=== PATIENT | male | born 1950 | race Caucasian/White ===

== ENCOUNTER 2025-02-14 23:05 | Inpatient (IN) | payer MEDICARE, OTHER ==
[~2025-02-14] VITALS: Ht 172.7 cm; Wt 66.2 kg
[2025-02-14] MEDS ORDERED: PROPOFOL 100 ML ONE (23:24)
[2025-02-14] MEDS ORDERED: CEFTRIAXONE 1GM BAG (ER ONLY) 50 ML IV ONE (23:26)
[2025-02-14] MEDS: IV NS 0.9% 1,000 ML BAG IV ONE (23:26)
[2025-02-14] MEDS: CEFTRIAXONE 1 G in IV D5W 50 ML IV ONE (23:27)
[2025-02-14] MEDS ORDERED: FENTANYL CITRAT IV 2,500 MCG in IV NS 0.9% 200 ML IV PRN (23:30)
[2025-02-14] MEDS ORDERED: AZITHROMYCIN 500 MG VIAL ONE (23:46)
[2025-02-14] MEDS: AZITHROMYCIN 500 MG in IV D5W 250 ML IV ONE (23:57)
[2025-02-14 23:59] LABS: PLATELET COUNT (AUTO) 506 K/uL (150-450); RED BLOOD CELL COUNT(AUTO) 3.61 MIL/uL (4.5-6.0); RED CELL DISTRIBUTION WIDTH 21.2 % (11.5-15.0); WHITE BLOOD COUNT (AUTO) 11.4 K/uL (4.3-11.0)
[2025-02-14] MEDS: PROPOFOL 100 ML IV PRN (23:59)
[2025-02-15] VITALS (73 sets, daily range): BP systolic 71–160; BP diastolic 29–148; TEMP 97.6–98.6; O2SAT 98–100
[2025-02-15 00:04] LABS: CALCIUM, SERUM 9.7 mg/dL (8.5-10.1); CREATININE 2.2 mg/dL (0.6-1.3); UREA NITROGEN, BLOOD 42 mg/dL (7-18)
[2025-02-15 00:10] LABS: ASPARTATE AMINOTRANSFERASE 117 U/L (15-37); TOTAL PROTEIN, SERUM 7.3 g/dL (6.4-8.2)
[2025-02-15 00:13] LABS: SODIUM SERUM 156 mmol/L (136-145)
[2025-02-15 00:27] LABS: APPEARANCE,URINE TURBID (CLEAR); BLOOD, URINE 1+ Ery/uL (NEGATIVE); LEUKOCYTE ESTERASE ,URINE 3+ (NEGATIVE); NITRITE, URINE NEGATIVE (NEGATIVE); UGLUCOSE NEGATIVE (NEGATIVE)
[2025-02-15 00:35] LABS: ABG BASE EXCESS -6.0 mmol/L (-2.0-3.0); ABG OXYGEN SATURATION 98.8 % (94.0-98.0); ABG PCO2 33.0 mmHg (35.0-48.0); ABG PH 7.369 (7.350-7.450); ABG PO2 162.7 mmHg (83.0-108.0); ABG TOTAL HEMOGLOBIN 9.3 G/dL (13.5-17.5); PEEP,BG 5 cm H2O; SET RATE, BG 18.0; SITE, ABG RIGHT BRACHIAL; VT, ABG 500 mL
[2025-02-15 00:39] LABS: ADD URINE CULTURE YES; SQUAMOUS EPITHELIAL CELL,UR 0-2 /HPF (None Seen)
[2025-02-15 00:51] LABS: EOSINOPHILS % (MANUAL) 1 % (0-4); LYMPHOCYTES % (MANUAL) 10 % (16-48); MONOCYTES % (MANUAL) 1 % (0-11.0); NEUTROPHILS % (MANUAL) 88 (42-76); PLATELET ESTIMATE INCREASED
[2025-02-15] MEDS ORDERED: ACETAMINOPHEN 650 MG/SUPP.RECT RC PRN (01:00)
[2025-02-15] MEDS ORDERED: DOSING PER PHARMACY-CEFEPIME IVPB XX PRN (01:00)
[2025-02-15] MEDS ORDERED: ONDANSETRON HCL/PF 4 MG/2 ML VIAL IVP PRN (01:00)
[2025-02-15] MEDS ORDERED: IV NS 0.9% 1,000 ML IV PRN ×2 (01:00→02:00)
[2025-02-15] MEDS ORDERED: DOSING PER PHARMACY-VANCOMYCIN IV XX PRN (01:00)
[2025-02-15 01:40] LABS: LACTIC ACID 5.7 mmol/L (0.4-2.0)
[2025-02-15] MEDS ORDERED: NOREPINEPHRINE 8MG/250ML RTU 250 ML IV ONE (01:50)
[2025-02-15] MEDS: NOREPINEPHRINE 8 MG in IV NS 0.9% 242 ML IV PRN ×2 (02:06→10:33)
[2025-02-15] MEDS: IV NS 0.9% 1,000 ML BAG IV ONE (02:06)
[2025-02-15] MEDS: NOREPINEPHRINE 8 MG in IV NS 0.9% 250 ML IV PRN (03:20)
[2025-02-15] MEDS: PROPOFOL 10MG/ML 50ML 50 ML IV PRN (04:09)
[2025-02-15 04:43] LABS: CALCIUM, SERUM 9.3 mg/dL (8.5-10.1)
[2025-02-15 04:44] LABS: CREATININE 1.7 mg/dL (0.6-1.3); PHOSPHORUS 3.5 mg/dL (2.5-4.9); UREA NITROGEN, BLOOD 36.0 mg/dL (7-18)
[2025-02-15 05:02] LABS: SODIUM SERUM 157.0 mmol/L (136-145)
[2025-02-15 05:04] LABS: LACTIC ACID REFLEX 1.7 mmol/L (0.4-1.9)
[2025-02-15] MEDS ORDERED: CEFEPIME 1 GM VIAL ONE (05:42)
[2025-02-15] MEDS: IV D5W 1,000 ML IV PRN (05:50)
[2025-02-15] MEDS: CEFEPIME 1 GM in IV NS 0.9% 100 ML IV ONE (06:07)
[2025-02-15] MEDS ORDERED: Z GUARD REMEDY 4 OZ OINT TP PRN (08:00)
[2025-02-15 08:34] LABS: ABG BASE EXCESS -4.8 mmol/L (-2.0-3.0); ABG OXYGEN SATURATION 98.2 % (94.0-98.0); ABG PCO2 26.7 mmHg (35.0-48.0); ABG PH 7.448 (7.350-7.450); ABG PO2 127.2 mmHg (83.0-108.0); ABG TOTAL HEMOGLOBIN 10.6 G/dL (13.5-17.5); FRACTIONATED INSPIRED OXYGEN 100.0 %; PEEP,BG 5 cm H2O; SET RATE, BG 18.0; SITE, ABG RIGHT RADIAL; VT, ABG 500 mL
[2025-02-15] MEDS: VANCOMYCIN HCL 1.25 GM in IV D5W 250 ML IV ONE (08:41)
[2025-02-15] MEDS: THERAHONEY GEL 1.5 OZ TUBE TP SCH (08:58)
[2025-02-15] MEDS ORDERED: dexaMETHasone SOD PHOSPHATE 6 MG in IV D5W 50 ML IV SCH (09:00)
[2025-02-15] MEDS: Z GUARD REMEDY 4 OZ OINT TP SCH (09:00)
[2025-02-15] MEDS: HEPARIN SODIUM, PORCINE 5000 UNITS/1 ML VIAL SQ SCH (09:00)
[2025-02-15] MEDS: PANTOPRAZOLE 40 MG VIAL IV SCH (09:00)
[2025-02-15] MEDS: IV D5/0.45 NACL 1,000 ML IV SCH (09:25)
[2025-02-15] MEDS ORDERED: CHOL200059 PO (09:38)
[2025-02-15] MEDS ORDERED: TAMS-12 PO (09:38)
[2025-02-15] MEDS ORDERED: TRAM50TA2 PO (09:38)
[2025-02-15] MEDS ORDERED: APIX2.5T PO (09:38)
[2025-02-15] MEDS ORDERED: LACT-209 GT (09:38)
[2025-02-15] MEDS ORDERED: ACET325T53 PO (09:38)
[2025-02-15] MEDS ORDERED: SENN-18 PO (09:38)
[2025-02-15] MEDS ORDERED: BUSP10TA3 PO (09:38)
[2025-02-15] MEDS: dexaMETHasone SOD PHOSPHATE 10 MG/ML VIAL MC SCH (09:49)
[2025-02-15] MEDS: POTASSIUM CL. PREMIX PERIPHER. 50 ML IV SCH (09:50)
[2025-02-15] MEDS: PROPOFOL 100 ML IV PRN (10:41)
[2025-02-15] MEDS ORDERED: REMDESIVIR (CHARGED) 200 MG, *LOADING DOSE 1 EA in IV NS 0.9% 210 ML IV ONE (13:00)
[2025-02-15] MEDS: VITAL AF 1.2 1,000 ML BOTTLE GT PRN (13:06)
[2025-02-15 13:19] LABS: ASPARTATE AMINOTRANSFERASE 46.0 U/L (15-37); TOTAL PROTEIN, SERUM 6.5 g/dL (6.4-8.2)
[2025-02-15 13:28] LABS: LACTIC ACID 4.9 mmol/L (0.4-2.0)
[2025-02-15] MEDS: MEROPENEM 1 G in IV NS 0.9% 100 ML IV SCH (13:50)
[2025-02-15] MEDS ORDERED: dexaMETHasone SOD PHOSPHATE 10 MG/ML VIAL IV SCH (14:00)
[2025-02-15] MEDS: REMDESIVIR (CHARGED) 200 MG in IV NS 0.9% 250 ML IV ONE (14:14)
[2025-02-15] MEDS: DAKINS QUARTER STRENGTH (0.125%) 480 ML BOTTLE TOP SCH (15:30)
[2025-02-15] MEDS ORDERED: CEFEPIME 2 GM in IV D5W 100 ML IV SCH (18:00)
[2025-02-15] MEDS: VANCOMYCIN 750 MG in IV D5W 250 ML IV ONE (21:00)
[2025-02-16] VITALS (96 sets, daily range): BP systolic 73–170; BP diastolic 35–98; TEMP 97.8–98.4; O2SAT 100
[2025-02-16 05:29] LABS: PLATELET COUNT (AUTO) 352 K/uL (150-450); RED BLOOD CELL COUNT(AUTO) 3.12 MIL/uL (4.5-6.0); RED CELL DISTRIBUTION WIDTH 20.5 % (11.5-15.0); WHITE BLOOD COUNT (AUTO) 14.2 K/uL (4.3-11.0)
[2025-02-16 05:47] LABS: INR 1.36 (0.91-1.10)
[2025-02-16 05:49] LABS: ASPARTATE AMINOTRANSFERASE 18.0 U/L (15-37); CALCIUM, SERUM 8.9 mg/dL (8.5-10.1); CREATININE 1.6 mg/dL (0.6-1.3); PHOSPHORUS 2.9 mg/dL (2.5-4.9); SODIUM SERUM 155.0 mmol/L (136-145); TOTAL PROTEIN, SERUM 6.0 g/dL (6.4-8.2); UREA NITROGEN, BLOOD 27.0 mg/dL (7-18)
[2025-02-16 05:50] LABS: CREATINE KINASE, TOTAL 68.0 U/L (39-308)
[2025-02-16] MEDS: VANCOMYCIN 1 GM in IV D5W 250ml IV SCH (08:00)
[2025-02-16] MEDS: dexaMETHasone SOD PHOSPHATE 10 MG/ML VIAL IV SCH (08:22)
[2025-02-16] MEDS: POTASSIUM CL. PREMIX PERIPHER. 50 ML IV SCH (10:15)
[2025-02-16] MEDS: REMDESIVIR (CHARGED) 100 MG in IV NS 0.9% 80 ML IV SCH (14:22)
[2025-02-17] VITALS (98 sets, daily range): BP systolic 89–158; BP diastolic 39–145; TEMP 97.5–98.3; O2SAT 90–100
[2025-02-17 04:57] LABS: PLATELET COUNT (AUTO) 274 K/uL (150-450); RED BLOOD CELL COUNT(AUTO) 2.71 MIL/uL (4.5-6.0); RED CELL DISTRIBUTION WIDTH 20.3 % (11.5-15.0); WHITE BLOOD COUNT (AUTO) 12.7 K/uL (4.3-11.0)
[2025-02-17 05:15] LABS: CALCIUM, SERUM 8.5 mg/dL (8.5-10.1); CREATININE 1.4 mg/dL (0.6-1.3); SODIUM SERUM 155.0 mmol/L (136-145); UREA NITROGEN, BLOOD 31.0 mg/dL (7-18)
[2025-02-17 05:18] LABS: INR 1.26 (0.91-1.10)
[2025-02-17 06:53] LABS: ASPARTATE AMINOTRANSFERASE 20.0 U/L (15-37); TOTAL PROTEIN, SERUM 5.5 g/dL (6.4-8.2)
[2025-02-17] MEDS ORDERED: POTASSIUM CHLORIDE 20 MEQ TAB.PRT.SR PO ONE (10:00)
[2025-02-17] MEDS: IV D5W 1,000 ML IV PRN (10:20)
[2025-02-17] MEDS: POTASSIUM CL. PREMIX PERIPHER. 50 ML IV SCH (10:59)
[2025-02-18] VITALS (45 sets, daily range): BP systolic 73–165; BP diastolic 41–113; TEMP 97.8–98.5; O2SAT 90–100
[2025-02-18 05:07] LABS: INR 1.19 (0.91-1.10)
[2025-02-18 05:12] LABS: ASPARTATE AMINOTRANSFERASE 13.0 U/L (15-37); TOTAL PROTEIN, SERUM 5.5 g/dL (6.4-8.2)
[2025-02-18 05:13] LABS: CALCIUM, SERUM 8.6 mg/dL (8.5-10.1); CREATININE 1.1 mg/dL (0.6-1.3); SODIUM SERUM 149.0 mmol/L (136-145); UREA NITROGEN, BLOOD 29.0 mg/dL (7-18)
[2025-02-18 05:30] LABS: PLATELET COUNT (AUTO) 265 K/uL (150-450); RED BLOOD CELL COUNT(AUTO) 2.65 MIL/uL (4.5-6.0); RED CELL DISTRIBUTION WIDTH 20.0 % (11.5-15.0); WHITE BLOOD COUNT (AUTO) 13.6 K/uL (4.3-11.0)
[2025-02-18 05:55] LABS: NEUTROPHILS % (MANUAL) 82 (42-76)
[2025-02-18 05:56] LABS: LYMPHOCYTES % (MANUAL) 6 % (16-48); MONOCYTES % (MANUAL) 12 % (0-11.0); PLATELET ESTIMATE ADEQUATE
[2025-02-18] MEDS ORDERED: DIATR MEGLU/DIATRIZOATE SODIUM 30 ML BOTTLE (GASTROGRAPHIN) ONE (08:09)
[2025-02-18] MEDS: MUPIROCIN OINT 2% 22 GM TUBE NS SCH (20:50)
[2025-02-19] VITALS (39 sets, daily range): BP systolic 68–176; BP diastolic 39–148; TEMP 98.2–98.5; O2SAT 95–100
[2025-02-19 01:11] LABS: PTH, INTACT 24 pg/mL (15-65)
[2025-02-19 05:15] LABS: CALCIUM, SERUM 8.0 mg/dL (8.5-10.1); CREATININE 1.0 mg/dL (0.6-1.3); SODIUM SERUM 145 mmol/L (136-145); UREA NITROGEN, BLOOD 22 mg/dL (7-18)
[2025-02-19 05:18] LABS: PLATELET COUNT (AUTO) 212 K/uL (150-450); RED BLOOD CELL COUNT(AUTO) 2.66 MIL/uL (4.5-6.0); RED CELL DISTRIBUTION WIDTH 20.3 % (11.5-15.0); WHITE BLOOD COUNT (AUTO) 11.1 K/uL (4.3-11.0)
[2025-02-19 05:19] LABS: INR 1.2 (0.91-1.10)
[2025-02-19 05:23] LABS: ASPARTATE AMINOTRANSFERASE 18.0 U/L (15-37); TOTAL PROTEIN, SERUM 4.8 g/dL (6.4-8.2)
[2025-02-19] MEDS: POTASSIUM CL. PREMIX PERIPHER. 50 ML IV SCH (08:26)
[2025-02-20] VITALS (24 sets, daily range): BP systolic 87–141; BP diastolic 41–100; TEMP 98.2–98.6; O2SAT 99–100
[2025-02-20 07:54] LABS: PLATELET COUNT (AUTO) 237 K/uL (150-450); RED BLOOD CELL COUNT(AUTO) 2.66 MIL/uL (4.5-6.0); RED CELL DISTRIBUTION WIDTH 20.2 % (11.5-15.0); WHITE BLOOD COUNT (AUTO) 10.3 K/uL (4.3-11.0)
[2025-02-20] MEDS ORDERED: TPN/PPN PER PHARMACY IV PRN (08:30)
[2025-02-20 08:40] LABS: CALCIUM, SERUM 7.8 mg/dL (8.5-10.1); CREATININE 0.9 mg/dL (0.6-1.3); SODIUM SERUM 142.0 mmol/L (136-145); UREA NITROGEN, BLOOD 19.0 mg/dL (7-18)
[2025-02-20 09:15] LABS: PHOSPHORUS 2.6 mg/dL (2.5-4.9)
[2025-02-20] MEDS ORDERED: DEXTROSE 50%-WATER 50 ML DISP.SYRIN IV PRN (10:00)
[2025-02-20] MEDS ORDERED: INSULIN REGULAR, HUMAN 100 UNIT/ML 3 ML VIAL SQ PRN (10:00)
[2025-02-20] MEDS: POTASSIUM CL. PREMIX PERIPHER. 50 ML IV SCH (10:00)
[2025-02-20] MEDS: METOCLOPRAMIDE HCL 10 MG/2 ML VIAL IV SCH (10:32)
[2025-02-20] MEDS ORDERED: BLOOD SUGAR DIAGNOSTIC 1 EACH STRIP IN SCH (12:00)
[2025-02-20] MEDS ORDERED: TPN BAG #1 IV SCH (12:00)
[2025-02-21] VITALS (24 sets, daily range): BP systolic 81–147; BP diastolic 46–103; TEMP 98–98.4; O2SAT 98–100
[2025-02-21 04:50] LABS: CALCIUM, SERUM 8.4 mg/dL (8.5-10.1); CREATININE 0.8 mg/dL (0.6-1.3); PLATELET COUNT (AUTO) 284 K/uL (150-450); RED BLOOD CELL COUNT(AUTO) 2.81 MIL/uL (4.5-6.0); RED CELL DISTRIBUTION WIDTH 20.1 % (11.5-15.0); SODIUM SERUM 143.0 mmol/L (136-145); UREA NITROGEN, BLOOD 18.0 mg/dL (7-18); WHITE BLOOD COUNT (AUTO) 10.3 K/uL (4.3-11.0)
[2025-02-21 08:42] LABS: PHOSPHORUS 2.5 mg/dL (2.5-4.9)
[2025-02-21 11:45] LABS: ABG BASE EXCESS -6.3 mmol/L (-2.0-3.0); ABG OXYGEN SATURATION 99.0 % (94.0-98.0); ABG PCO2 22.7 mmHg (35.0-48.0); ABG PH 7.475 (7.350-7.450); ABG PO2 145.0 mmHg (83.0-108.0); ABG TOTAL HEMOGLOBIN 7.7 G/dL (13.5-17.5); FRACTIONATED INSPIRED OXYGEN 40.0 %; SET RATE, BG 4.0; SITE, ABG RIGHT FEMORAL; VT, ABG 475 mL
[2025-02-21] MEDS: VANCOMYCIN 1 GM in IV D5W 250ml IV SCH (20:17)
[2025-02-22] VITALS (43 sets, daily range): BP systolic 94–171; BP diastolic 41–126; TEMP 98.8–99; O2SAT 95–100
[2025-02-22 05:19] LABS: CALCIUM, SERUM 7.8 mg/dL (8.5-10.1); CREATININE 0.6 mg/dL (0.6-1.3); SODIUM SERUM 139.0 mmol/L (136-145); UREA NITROGEN, BLOOD 15.0 mg/dL (7-18)
[2025-02-22 05:21] LABS: PLATELET COUNT (AUTO) 306 K/uL (150-450); RED BLOOD CELL COUNT(AUTO) 2.66 MIL/uL (4.5-6.0); RED CELL DISTRIBUTION WIDTH 20.3 % (11.5-15.0); WHITE BLOOD COUNT (AUTO) 8.7 K/uL (4.3-11.0)
[2025-02-22 06:31] LABS: EOSINOPHILS % (MANUAL) 6 % (0-4); LYMPHOCYTES % (MANUAL) 13 % (16-48); MONOCYTES % (MANUAL) 15 % (0-11.0); NEUTROPHILS % (MANUAL) 66 (42-76); PLATELET ESTIMATE ADEQUATE
[2025-02-22] MEDS: POTASSIUM CHLORIDE 20 MEQ POWDER PACKET GT ONE ×2 (10:09→10:40)
[2025-02-22] MEDS: MEROPENEM 1 G in IV NS 0.9% 100 ML IV SCH (14:13)
[2025-02-22 14:35] LABS: ABG BASE EXCESS -4.7 mmol/L (-2.0-3.0); ABG OXYGEN SATURATION 98.8 % (94.0-98.0); ABG PCO2 23.6 mmHg (35.0-48.0); ABG PH 7.495 (7.350-7.450); ABG PO2 139.5 mmHg (83.0-108.0); ABG TOTAL HEMOGLOBIN 7.7 G/dL (13.5-17.5); FRACTIONATED INSPIRED OXYGEN 40.0 %; PEEP,BG 5 cm H2O; SITE, ABG RIGHT RADIAL
[2025-02-22] MEDS: ARGININE/GLUTAMINE/CALCIUM BMB 1 EACH POWD.PACK GT SCH (18:10)
[2025-02-23] VITALS (30 sets, daily range): BP systolic 90–175; BP diastolic 44–101; TEMP 98.4–99; O2SAT 98–100
[2025-02-23 04:35] LABS: CALCIUM, SERUM 7.9 mg/dL (8.5-10.1); CREATININE 0.8 mg/dL (0.6-1.3); SODIUM SERUM 141.0 mmol/L (136-145); UREA NITROGEN, BLOOD 16.0 mg/dL (7-18)
[2025-02-24] VITALS (26 sets, daily range): BP systolic 98–145; BP diastolic 48–74; TEMP 98.4–99.2; O2SAT 100
[2025-02-24 04:43] LABS: CALCIUM, SERUM 8.0 mg/dL (8.5-10.1); CREATININE 0.7 mg/dL (0.6-1.3); SODIUM SERUM 141.0 mmol/L (136-145); UREA NITROGEN, BLOOD 15.0 mg/dL (7-18)
[2025-02-24] MEDS: PANTOPRAZOLE 40 MG/PACK PACK GT SCH (08:26)
[2025-02-24] MEDS: VANCOMYCIN HCL 125 MG/2.5 ML ORAL.SUSP GT SCH (18:34)
[2025-02-25] VITALS (26 sets, daily range): BP systolic 93–157; BP diastolic 39–87; TEMP 98–99.7; O2SAT 100
[2025-02-25 05:08] LABS: CALCIUM, SERUM 8.2 mg/dL (8.5-10.1); CREATININE 0.7 mg/dL (0.6-1.3); SODIUM SERUM 137 mmol/L (136-145); UREA NITROGEN, BLOOD 11 mg/dL (7-18)
[2025-02-25] MEDS: POTASSIUM CHLORIDE 20 MEQ POWDER PACKET PO SCH (11:32)
[2025-02-26] VITALS (26 sets, daily range): BP systolic 93–161; BP diastolic 38–78; TEMP 99.2–99.8; O2SAT 100
[2025-02-26] MEDS: VANCOMYCIN 1 GM /D5W 250 ML PB IV ONE (02:13)
[2025-02-26 04:36] LABS: CALCIUM, SERUM 8.1 mg/dL (8.5-10.1); CREATININE 0.7 mg/dL (0.6-1.3); SODIUM SERUM 138.0 mmol/L (136-145); UREA NITROGEN, BLOOD 10.0 mg/dL (7-18)
[2025-02-26 09:33] LABS: ABG BASE EXCESS 2.0 mmol/L (-2.0-3.0); ABG OXYGEN SATURATION 99.0 % (94.0-98.0); ABG PCO2 22.9 mmHg (35.0-48.0); ABG PH 7.618 (7.350-7.450); ABG PO2 146.5 mmHg (83.0-108.0); ABG TOTAL HEMOGLOBIN 8.0 G/dL (13.5-17.5); FRACTIONATED INSPIRED OXYGEN 40.0 %; SITE, ABG LEFT RADIAL
[2025-02-26] MEDS: POTASSIUM CHLORIDE 20 MEQ POWDER PACKET GT ONE (09:46)
[2025-02-27] VITALS (26 sets, daily range): BP systolic 88–136; BP diastolic 39–66; TEMP 99–99.7; O2SAT 100
[2025-02-27 04:50] LABS: PLATELET COUNT (AUTO) 274 K/uL (150-450); RED BLOOD CELL COUNT(AUTO) 2.57 MIL/uL (4.5-6.0); RED CELL DISTRIBUTION WIDTH 20.4 % (11.5-15.0); WHITE BLOOD COUNT (AUTO) 10.2 K/uL (4.3-11.0)
[2025-02-27 05:10] LABS: ASPARTATE AMINOTRANSFERASE 17.0 U/L (15-37); CALCIUM, SERUM 8.2 mg/dL (8.5-10.1); CREATININE 0.6 mg/dL (0.6-1.3); PHOSPHORUS 2.7 mg/dL (2.5-4.9); SODIUM SERUM 135.0 mmol/L (136-145); TOTAL PROTEIN, SERUM 5.6 g/dL (6.4-8.2); UREA NITROGEN, BLOOD 13.0 mg/dL (7-18)
[2025-02-27] MEDS: POTASSIUM CHLORIDE 20 MEQ POWDER PACKET GT ONE (09:08)
[2025-02-27] MEDS: MAGNESIUM OXIDE 400 MG TABLET GT ONE (09:32)
[2025-02-27] MEDS: VITAL AF 1.2 1,000 ML BOTTLE GT PRN (16:47)
[2025-02-27] MEDS: ARGININE/GLUTAMINE/CALCIUM BMB 1 EACH POWD.PACK GT SCH (16:58)
[2025-02-27] MEDS: METOCLOPRAMIDE HCL 10 MG/2 ML VIAL IV SCH (17:12)
[2025-02-27] MEDS: VANCOMYCIN HCL 125 MG/2.5 ML ORAL.SUSP GT SCH (17:12)
[2025-02-28] VITALS (26 sets, daily range): BP systolic 92–184; BP diastolic 42–97; TEMP 98–99.4; O2SAT 100
[2025-02-28 03:44] LABS: CALCIUM, SERUM 8.1 mg/dL (8.5-10.1); CREATININE 0.7 mg/dL (0.6-1.3); SODIUM SERUM 137.0 mmol/L (136-145); UREA NITROGEN, BLOOD 17.0 mg/dL (7-18)
[2025-02-28] MEDS: PANTOPRAZOLE 40 MG/PACK PACK GT SCH (08:23)
[2025-02-28 13:27] LABS: INR 1.26 (0.91-1.10)
[2025-02-28 14:26] LABS: PLATELET COUNT (AUTO) 257 K/uL (150-450); RED BLOOD CELL COUNT(AUTO) 2.52 MIL/uL (4.5-6.0); RED CELL DISTRIBUTION WIDTH 20.7 % (11.5-15.0); WHITE BLOOD COUNT (AUTO) 8.2 K/uL (4.3-11.0)
[2025-02-28 15:43] LABS: EOSINOPHILS % (MANUAL) 8 % (0-4); LYMPHOCYTES % (MANUAL) 13 % (16-48); MONOCYTES % (MANUAL) 6 % (0-11.0); NEUTROPHILS % (MANUAL) 73 (42-76)
[2025-02-28 15:44] LABS: PLATELET ESTIMATE ADEQUATE
[2025-02-28] MEDS ORDERED: FENTANYL PF 100MCG/2ML AMPUL IV PRN (16:30)
[2025-02-28] MEDS ORDERED: VECURONIUM 10 MG VIAL IV PRN (16:30)
[2025-02-28] MEDS ORDERED: MIDAZOLAM HCL 2 MG/2ML VIAL IV PRN (16:30)
[2025-03-01] VITALS (43 sets, daily range): BP systolic 84–148; BP diastolic 37–78; TEMP 97.5–100; O2SAT 98–100
[2025-03-01 04:54] LABS: INR 1.26 (0.91-1.10); PLATELET COUNT (AUTO) 237 K/uL (150-450); RED BLOOD CELL COUNT(AUTO) 2.46 MIL/uL (4.5-6.0); RED CELL DISTRIBUTION WIDTH 20.5 % (11.5-15.0); WHITE BLOOD COUNT (AUTO) 8.2 K/uL (4.3-11.0)
[2025-03-01 04:56] LABS: CALCIUM, SERUM 8.2 mg/dL (8.5-10.1); CREATININE 0.8 mg/dL (0.6-1.3); SODIUM SERUM 140.0 mmol/L (136-145); UREA NITROGEN, BLOOD 13.0 mg/dL (7-18)
[2025-03-01 05:47] LABS: EOSINOPHILS % (MANUAL) 9 % (0-4); NEUTROPHILS % (MANUAL) 70 (42-76)
[2025-03-01 05:48] LABS: LYMPHOCYTES % (MANUAL) 16 % (16-48); MONOCYTES % (MANUAL) 5 % (0-11.0); PLATELET ESTIMATE ADEQUATE
[2025-03-01] MEDS ORDERED: MIDAZOLAM HCL 2 MG/2ML VIAL IV PRN (10:30)
[2025-03-01] MEDS: FENTANYL PF 100MCG/2ML AMPUL IV ONE (12:48)
[2025-03-01] MEDS: VECURONIUM 10 MG VIAL IV ONE (12:48)
[2025-03-01] MEDS: MIDAZOLAM HCL 2 MG/2ML VIAL IV ONE (12:49)
[2025-03-01] MEDS: ACETAMINOPHEN 650 MG/20.3 ML UDC GT PRN (23:21)
[2025-03-02] VITALS (24 sets, daily range): BP systolic 88–140; BP diastolic 40–67; TEMP 98–99.9; O2SAT 100
[2025-03-02 04:32] LABS: PLATELET COUNT (AUTO) 234 K/uL (150-450); RED BLOOD CELL COUNT(AUTO) 2.95 MIL/uL (4.5-6.0); RED CELL DISTRIBUTION WIDTH 19.2 % (11.5-15.0); WHITE BLOOD COUNT (AUTO) 8.6 K/uL (4.3-11.0)
[2025-03-02 04:44] LABS: CALCIUM, SERUM 8.5 mg/dL (8.5-10.1); CREATININE 0.8 mg/dL (0.6-1.3); SODIUM SERUM 139.0 mmol/L (136-145); UREA NITROGEN, BLOOD 13.0 mg/dL (7-18)
[2025-03-02 09:07] LABS: *SPE A/G RATIO 0.5 (0.7-1.7); *SPE ALBUMIN 1.7 g/dL (2.9-4.4); *SPE ALPHA-1-GLOBULIN 0.5 g/dL (0.0-0.4); *SPE ALPHA-2-GLOBULIN 0.9 g/dL (0.4-1.0); *SPE BETA GLOBULIN 1.1 g/dL (0.7-1.3); *SPE GLOBULIN, TOTAL 3.4 g/dL (2.2-3.9); *SPE M-SPIKE Not Observed g/dL (Not Observed); *SPE PROTEIN TOTAL 5.1 g/dL (6.0-8.5); *SPEGAMMA GLOBULIN 1.0 g/dL (0.4-1.8)
[2025-03-03] VITALS (24 sets, daily range): BP systolic 100–152; BP diastolic 42–86; TEMP 99–99.8; O2SAT 97–100
[2025-03-03 04:25] LABS: PLATELET COUNT (AUTO) 238 K/uL (150-450); RED BLOOD CELL COUNT(AUTO) 2.76 MIL/uL (4.5-6.0); RED CELL DISTRIBUTION WIDTH 19.7 % (11.5-15.0); WHITE BLOOD COUNT (AUTO) 8.7 K/uL (4.3-11.0)
[2025-03-03 04:30] LABS: CALCIUM, SERUM 8.4 mg/dL (8.5-10.1); CREATININE 0.8 mg/dL (0.6-1.3); SODIUM SERUM 136.0 mmol/L (136-145); UREA NITROGEN, BLOOD 12.0 mg/dL (7-18)
[2025-03-04] VITALS (40 sets, daily range): BP systolic 98–144; BP diastolic 43–76; TEMP 98.4–101; O2SAT 97–100
[2025-03-04 04:06] LABS: PLATELET COUNT (AUTO) 203 K/uL (150-450); RED BLOOD CELL COUNT(AUTO) 2.60 MIL/uL (4.5-6.0); RED CELL DISTRIBUTION WIDTH 19.9 % (11.5-15.0); WHITE BLOOD COUNT (AUTO) 8.7 K/uL (4.3-11.0)
[2025-03-04 04:25] LABS: CALCIUM, SERUM 8.1 mg/dL (8.5-10.1); CREATININE 0.7 mg/dL (0.6-1.3); PHOSPHORUS 2.8 mg/dL (2.5-4.9); SODIUM SERUM 136.0 mmol/L (136-145); UREA NITROGEN, BLOOD 12.0 mg/dL (7-18)
[2025-03-04] MEDS: ARGININE/GLUTAMINE/CALCIUM BMB 1 EACH POWD.PACK GT SCH (08:56)
[2025-03-04] MEDS: POTASSIUM CHLORIDE 20 MEQ POWDER PACKET GT ONE (08:56)
[2025-03-04 11:08] LABS: ABG BASE EXCESS 1.7 mmol/L (-2.0-3.0); ABG OXYGEN SATURATION 99.4 % (94.0-98.0); ABG PCO2 29.3 mmHg (35.0-48.0); ABG PH 7.533 (7.350-7.450); ABG PO2 171.5 mmHg (83.0-108.0); ABG TOTAL HEMOGLOBIN 8.4 G/dL (13.5-17.5); FRACTIONATED INSPIRED OXYGEN 40.0 %; SITE, ABG RIGHT RADIAL
[2025-03-05] VITALS (22 sets, daily range): BP systolic 97–159; BP diastolic 47–90; TEMP 97.7–101.8; O2SAT 91–100
[2025-03-05 10:19] LABS: PLATELET COUNT (AUTO) 206 K/uL (150-450); RED BLOOD CELL COUNT(AUTO) 2.96 MIL/uL (4.5-6.0); RED CELL DISTRIBUTION WIDTH 19.9 % (11.5-15.0); WHITE BLOOD COUNT (AUTO) 7.8 K/uL (4.3-11.0)
[2025-03-05 10:31] LABS: CALCIUM, SERUM 8.5 mg/dL (8.5-10.1); CREATININE 0.8 mg/dL (0.6-1.3); PHOSPHORUS 3.1 mg/dL (2.5-4.9); SODIUM SERUM 138.0 mmol/L (136-145); UREA NITROGEN, BLOOD 17.0 mg/dL (7-18)
[2025-03-05] MEDS ORDERED: DOSING PER PHARMACY-CEFEPIME IVPB XX PRN (13:00)
[2025-03-05] MEDS ORDERED: DOSING PER PHARMACY-VANCOMYCIN IV XX PRN (13:00)
[2025-03-05] MEDS: CEFEPIME 2 GM in IV D5W 100 ML IV SCH (13:59)
[2025-03-05] MEDS: VANCOMYCIN HCL 1.25 GM in IV D5W 250 ML IV ONE (15:15)
[2025-03-06] VITALS (12 sets, daily range): BP systolic 100–154; BP diastolic 54–75; TEMP 98.1–100; O2SAT 96–100
[2025-03-06 08:10] LABS: CALCIUM, SERUM 8.8 mg/dL (8.5-10.1); CREATININE 0.9 mg/dL (0.6-1.3); PHOSPHORUS 2.4 mg/dL (2.5-4.9); SODIUM SERUM 140.0 mmol/L (136-145); UREA NITROGEN, BLOOD 23.0 mg/dL (7-18)
[2025-03-06 08:12] LABS: PLATELET COUNT (AUTO) 171 K/uL (150-450); RED BLOOD CELL COUNT(AUTO) 3.04 MIL/uL (4.5-6.0); RED CELL DISTRIBUTION WIDTH 21.0 % (11.5-15.0); WHITE BLOOD COUNT (AUTO) 3.6 K/uL (4.3-11.0)
[2025-03-06] MEDS: VANCOMYCIN 1 GM in IV D5W 250ml IV SCH (15:04)
[2025-03-06] MEDS: Sodium Phosphate 15 MMOL in IV NS 0.9% 245 ML IV ONE (16:17)
[2025-03-07] VITALS (13 sets, daily range): BP systolic 98–118; BP diastolic 50–80; TEMP 98.1–98.9; O2SAT 97–100
[2025-03-07 07:19] LABS: PLATELET COUNT (AUTO) 147 K/uL (150-450); RED BLOOD CELL COUNT(AUTO) 2.70 MIL/uL (4.5-6.0); RED CELL DISTRIBUTION WIDTH 20.1 % (11.5-15.0); WHITE BLOOD COUNT (AUTO) 5.0 K/uL (4.3-11.0)
[2025-03-07 07:34] LABS: CALCIUM, SERUM 8.6 mg/dL (8.5-10.1); CREATININE 0.9 mg/dL (0.6-1.3); PHOSPHORUS 3.1 mg/dL (2.5-4.9); SODIUM SERUM 141.0 mmol/L (136-145); UREA NITROGEN, BLOOD 24.0 mg/dL (7-18)
[2025-03-08] VITALS (10 sets, daily range): BP systolic 121–150; BP diastolic 59–70; TEMP 97.4–98.6; O2SAT 96–100
[2025-03-08 06:54] LABS: PLATELET COUNT (AUTO) 157 K/uL (150-450); RED BLOOD CELL COUNT(AUTO) 2.75 MIL/uL (4.5-6.0); RED CELL DISTRIBUTION WIDTH 19.6 % (11.5-15.0); WHITE BLOOD COUNT (AUTO) 6.4 K/uL (4.3-11.0)
[2025-03-08 07:07] LABS: CALCIUM, SERUM 9.0 mg/dL (8.5-10.1); CREATININE 0.7 mg/dL (0.6-1.3); PHOSPHORUS 1.9 mg/dL (2.5-4.9); SODIUM SERUM 138.0 mmol/L (136-145); UREA NITROGEN, BLOOD 26.0 mg/dL (7-18)
[2025-03-08 11:07] LABS: EOSINOPHILS % (MANUAL) 8 % (0-4); LYMPHOCYTES % (MANUAL) 19 % (16-48); MONOCYTES % (MANUAL) 2 % (0-11.0); NEUTROPHILS % (MANUAL) 71 (42-76); PLATELET ESTIMATE ADEQUATE
[2025-03-08] MEDS: FREE WATER VIA TUBE FEEDING GT SCH (13:00)
[2025-03-08] MEDS ORDERED: FREE WATER VIA TUBE FEEDING GT SCH (13:00)
[2025-03-08] MEDS: NEUTRA PHOS 1 POWD.PACKET GT ONE (15:17)
== END 2025-03-08 20:36 | DRG 4 ==
LOC: ER 23:08 → ICU 02-15 02:27 → TELE-TD 03-05 02:49 → TELE1 03-06 09:34
PROVIDERS: ADMIT Registered Nurse Psychiatric/Mental Health
PROC: 5A1955Z Respiratory Ventilation, Greater than 96 Consecutive Hours (ICD-10-PCS; principal; 2025-02-15)
PROC: XW033E5 Introduction of Remdesivir Anti-infective into Peripheral Vein, Percutaneous Approach, New Technology Group 5 (ICD-10-PCS; 2025-02-15)
PROC: 0BH17EZ Insertion of Endotracheal Airway into Trachea, Via Natural or Artificial Opening (ICD-10-PCS; 2025-02-15)
PROC: 06HM33Z Insertion of Infusion Device into Right Femoral Vein, Percutaneous Approach (ICD-10-PCS; 2025-02-15)
PROC: 30233N1 Transfusion of Nonautologous Red Blood Cells into Peripheral Vein, Percutaneous Approach (ICD-10-PCS; 2025-02-23)
PROC: 0B113F4 Bypass Trachea to Cutaneous with Tracheostomy Device, Percutaneous Approach (ICD-10-PCS; 2025-03-01)
PROC: 0BJ08ZZ Inspection of Tracheobronchial Tree, Via Natural or Artificial Opening Endoscopic (ICD-10-PCS; 2025-03-01)
DX: A41.89 Other specified sepsis (principal); L89.154 Pressure ulcer of sacral region, stage 4; N17.0 Acute kidney failure with tubular necrosis; U07.1 COVID-19; J15.69 Pneumonia due to other Gram-negative bacteria; J96.01 Acute respiratory failure with hypoxia; G92.8 Other toxic encephalopathy; R65.21 Severe sepsis with septic shock; J12.82 Pneumonia due to coronavirus disease 2019; G82.50 Quadriplegia, unspecified; A04.72 Enterocolitis due to Clostridium difficile, not specified as recurrent; D68.59 Other primary thrombophilia; E87.0 Hyperosmolality and hypernatremia; Z99.11 Dependence on respirator [ventilator] status; E87.20 Acidosis, unspecified; I70.262 Atherosclerosis of native arteries of extremities with gangrene, left leg; L97.828 Non-pressure chronic ulcer of other part of left lower leg with other specified severity; L97.428 Non-pressure chronic ulcer of left heel and midfoot with other specified severity; L97.328 Non-pressure chronic ulcer of left ankle with other specified severity; M86.672 Other chronic osteomyelitis, left ankle and foot; E86.0 Dehydration; D64.9 Anemia, unspecified; D75.839 Thrombocytosis, unspecified; E87.6 Hypokalemia; R13.10 Dysphagia, unspecified; Z87.01 Personal history of pneumonia (recurrent); E87.8 Other disorders of electrolyte and fluid balance, not elsewhere classified; Z93.1 Gastrostomy status; Z74.01 Bed confinement status; E83.89 Other disorders of mineral metabolism; M24.561 Contracture, right knee; M24.562 Contracture, left knee; R74.01 Elevation of levels of liver transaminase levels; L98.8 Other specified disorders of the skin and subcutaneous tissue; E86.9 Volume depletion, unspecified; K31.84 Gastroparesis; Z22.322 Carrier or suspected carrier of Methicillin resistant Staphylococcus aureus
CPT/HCPCS: 31720; 36415; 36600; 70450-TC; 71045-TC; 73030-TC; 73060-TC; 73080-TC; 73090-TC; 73590-TC; 73620-TC; 74018; 76770-TC; 80048-TC; 80053-TC; 80076-TC; 80202-TC; 81001; 82248-TC; 82550-TC; 82728-TC; 82803-TC; 82962-TC; 83605-TC; 83735-TC; 83970; 84100-TC; 84155; 84165; 84478-TC; 84484-TC; 85025-TC; 85027-TC; 85378-TC; 85610-TC; 85730-TC; 86140-TC; 86850-TC; 87040-TC; 87070-TC; 87081-TC; 87086-TC; 87205-TC; 94002-TC; 94003-TC; 94640-TC; 94760-TC; 94762-TC; 94799-TC; 99082-TC; A4223; A6213; A6223; A6253; A6254; A6403; A7526; A9563; G0378; J0456; J0692; J0696; J1100; J1644; J1815; J2048; J2185; J2250; J2470; J2765; J3010; J3373; J3374; J3480; J3490; J7030; J7042; J7050; J7060; J7070; P9016; Q9963